=== PATIENT | female | born 1980 | race Caucasian/White ===

== ENCOUNTER 2018-03-10 18:29 | Emergency (ER) | payer BC ==
[2018-03-10 19:14] VITALS: BP 141/94; PULSE 88; TEMP 98.1; BMI 26.5
--- NOTE | 2018-03-10 19:14 | PDOC ---
Rapid Medical Evaluation Time Seen by Provider: 03/10/18 19:09 Medical Evaluation: Allergies Allergy/AdvReac Type Severity Reaction Status Date / Time No Known Allergies Allergy Verified 03/10/18 19:09 03/10/18 19:09 Tripped down the steps at home. Fell down about four steps. Hit face on stairs as well with rug. Reports passing out. Unsure how long she passed out for. Reports bleeding nose. Exam: black eye to L eye. r ankle pain, pain movement Orders: R ankle x-ray, head CT , urine preg Pt to proceed to Ed for further eval
[2018-03-10] MEDS ORDERED: IBUPROFEN 600 MG TABLET (FP) PO ONE (20:31)
--- NOTE | 2018-03-10 21:39 | PDOC ---
History of Present Illness - General History Source: Patient Exam Limitations: No Limitations - History of Present Illness Initial Comments: 03/10/18 21:45 The patient is a 37 year old female with no significant past medical history who presents to the ED s/p mechanical fall up the stairs in her house. She states that she was walking to get a glass of water when her legs gave out on the stairs and she fell forward, hitting her face. Soon after she developed bruising and pain to her right ankle and the pain has become significantly worse to the point where she cannot bear weight. She denies any LOC, shortness of breath, palpitations, headache, or focal neurological deficits before falling. She denies any fevers or chills. Allergies: NKDA PCP: Dr. Tsai <Nina Hester - Last Filed: 03/10/18 21:54> <Lisbet Kohli - Last Filed: 03/11/18 02:19> <Hailey Sarmiento - Last Filed: 03/11/18 03:42> - General Chief Complaint: Injury Stated Complaint: FALL , + LOC , ANKLE INJURY Time Seen by Provider: 03/10/18 19:09 Past History <Nina Hester - Last Filed: 03/10/18 21:54> <Lisbet Kohli - Last Filed: 03/11/18 02:19> - Past Medical History COPD: No - Suicide/Smoking/Psychosocial Hx Smoking History: Never smoked Have you smoked in the past 12 months: Yes Number of Cigarettes Smoked Daily: 3 Information on smoking cessation initiated: Yes 'Breaking Loose' booklet given: 03/10/18 Hx Alcohol Use: No Drug/Substance Use Hx: No Substance Use Type: None <Hailey Sarmiento - Last Filed: 03/11/18 03:42> - Past Medical History Allergies/Adverse Reactions: Allergies Allergy/AdvReac Type Severity Reaction Status Date / Time No Known Allergies Allergy Verified 03/10/18 19:09 Home Medications: Ambulatory Orders Ibuprofen [Motrin -] 600 mg PO TID PRN #21 tablet 03/11/18 Oxycodone HCl/Acetaminophen [Percocet 5-325 mg Tablet] 1 tab PO Q6H PRN #12 tablet MDD 4 03/11/18 Review of Systems - Review of Systems Able to Perform ROS?: Yes Comments:: 03/10/18 21:46 CONSTITUTIONAL: Absent: fever, chills, diaphoresis, generalized weakness, malaise, loss of appetite HEENT: Absent: rhinorrhea, nasal congestion, throat pain, throat swelling, difficulty swallowing, mouth swelling, ear pain, eye pain, visual Changes CARDIOVASCULAR: Absent: chest pain, syncope, palpitations, irregular heart rate, lightheadedness , peripheral edema RESPIRATORY: Absent: cough, shortness of breath, dyspnea with exertion, orthopnea, wheezing, stridor, hemoptysis GASTROINTESTINAL: Absent: abdominal pain, abdominal distension, nausea, vomiting, diarrhea, constipation, melena, hematochezia GENITOURINARY: Absent: dysuria, frequency, urgency, hesitancy, hematuria, flank pain, genital pain MUSCULOSKELETAL: (+) right ankle pain and swelling SKIN: Absent: rash, itching, pallor HEMATOLOGIC/IMMUNOLOGIC: Absent: easy bleeding, easy bruising, lymphadenopathy, frequent infections ENDOCRINE: Absent: unexplained weight gain, unexplained weight loss, heat intolerance, cold intolerance NEUROLOGIC: Absent: headache, focal weakness or paresthesias, dizziness, unsteady gait, seizure, mental status changes, bladder or bowel incontinence PSYCHIATRIC: Absent: anxiety, depression, suicidal or homicidal ideation, hallucinations. All Other Systems: Reviewed and Negative <Nina Hester - Last Filed: 03/10/18 21:54> *Physical Exam - Vital Signs Last Vital Signs Temp Pulse Resp BP Pulse Ox 98.1 F 88 18 141/94 100 03/10/18 19:10 03/10/18 19:10 03/10/18 19:10 03/10/18 19:10 03/10/18 19:10 - Physical Exam Comments: 03/10/18 21:49 GENERAL: Well developed, well nourished. Awake and alert. No acute distress. HEENT: Normocephalic, atraumatic. PERRLA, EOMI. No conjunctival pallor. Sclera are non- icteric. Moist mucous membranes. Oropharynx is clear. NECK: Supple. Full ROM. No JVD. Carotid pulses 2+ and symmetric, without bruits. No thyromegaly. No lymphadenopathy. CARDIOVASCULAR: Regular rate and rhythm. No murmurs, rubs, or gallops. Distal pulses are 2+ and symmetric. PULMONARY: No evidence of respiratory distress. Lungs clear to auscultation bilaterally. No wheezing, rales or rhonchi. ABDOMINAL: Soft. Non-tender. Non-distended. No rebound or guarding. No organomegaly. Normoactive bowel sounds. MUSCULOSKELETAL Swollen, tender, deformed, ecchymotic right ankle, DP pulses in tact. No CVA tenderness. EXTREMITIES: No cyanosis. No clubbing. No edema. No calf tenderness. SKIN: Warm and dry. Normal capillary refill. No rashes. No jaundice. NEUROLOGICAL: Alert, awake, appropriate. Cranial nerves 2-12 intact. No deficits to light touch and temperature in ower extremities. No motor deficits in the in face, upper extremities and lower extremities. Normoreflexic in the upper and lower extremities. Normal speech. PSYCHIATRIC: Cooperative. Good eye contact. Appropriate mood and affect. <Nina Hester - Last Filed: 03/10/18 21:54> - Vital Signs Last Vital Signs Temp Pulse Resp BP Pulse Ox 98.1 F 88 18 141/94 100 03/10/18 19:10 03/10/18 19:10 03/10/18 19:10 03/10/18 19:10 03/10/18 19:10 <Lisbet Kohil - Last Filed: 03/11/18 02:19> - Vital Signs Last Vital Signs Temp Pulse Resp BP Pulse Ox 98.1 F 88 18 141/94 100 03/10/18 19:10 03/10/18 19:10 03/10/18 19:10 03/10/18 19:10 03/10/18 19:10 <Hailey Sarmiento - Last Filed: 03/11/18 03:42> Procedures - Splinting Splint Location: Right: Ankle Pre-Proc Neuro Vasc Exam: normal Hand-Made Type: orthoglass Splint Type: Yes: Sugar Graeme Posterior Post-Proc Neuro Vasc Exam: normal Ujlio Bandage: yes Sling: No Complications: No Post splint xray: No Good repositioning: Yes <Hailey Sarmiento - Last Filed: 03/11/18 03:42> ED Treatment Course - Medications Given in the ED: ED Medications Discontinued Medications Generic Name Dose Route Start Last Admin Trade Name Freq PRN Reason Stop Dose Admin Ibuprofen 600 mg 03/10/18 20:31 03/10/18 20:32 Motrin - PO 03/10/18 20:32 600 mg ONCE ONE Administration <Nina Hester - Last Filed: 03/10/18 21:54> - ADDITIONAL ORDERS Additional order review: Laboratory Results 03/10/18 22:30 Urine HCG, Qual Negative - Medications Given in the ED: ED Medications Discontinued Medications Generic Name Dose Route Start Last Admin Trade Name Freq PRN Reason Stop Dose Admin Ibuprofen 600 mg 03/10/18 20:31 03/10/18 20:32 Motrin - PO 03/10/18 20:32 600 mg ONCE ONE Administration Morphine Sulfate 4 mg 03/10/18 22:47 03/10/18 23:00 Morphine Injection - IVPUSH 03/10/18 22:48 4 mg ONCE ONE Administration Morphine Sulfate 2 mg 03/11/18 02:01 03/11/18 02:02 Morphine Injection - IVPUSH 03/11/18 02:02 2 mg NOW ONE Administration - Additional Consults Time Called: 02:19 (Awaiting callback for ortho consult) Consult/PCP: Dr. Melton <Lisbet Kohli - Last Filed: 03/11/18 02:19> - Medications Given in the ED: ED Medications Discontinued Medications Generic Name Dose Route Start Last Admin Trade Name Freq PRN Reason Stop Dose Admin Ibuprofen 600 mg 03/10/18 20:31 03/10/18 20:32 Motrin - PO 03/10/18 20:32 600 mg ONCE ONE Administration <Hailey Sarmiento - Last Filed: 03/11/18 03:42> *DC/Admit/Observation/Transfer - Attestations Scribe Attestion: 03/10/18 21:51 Documentation prepared by Nina Hester, acting as medical detail representative for Hailey Sarmiento MD. <Nina Hester - Last Filed: 03/10/18 21:54> <Lisbet Kohli - Last Filed: 03/11/18 02:19> <Hailey Sarmiento - Last Filed: 03/11/18 03:42> Diagnosis at time of Disposition: Ankle fracture, right Qualifiers: Encounter type: initial encounter Fracture type: closed Qualified Code(s): S82.891A - Other fracture of right lower leg, initial encounter for closed fracture Bruise of face Qualifiers: Encounter type: initial encounter Qualified Code(s): S00.83XA - Contusion of other part of head, initial encounter - Discharge Dispostion Disposition: HOME Condition at time of disposition: Stable - Prescriptions Prescriptions: Ibuprofen [Motrin -] 600 mg PO TID PRN #21 tablet PRN Reason: Pain Level 6-10 Oxycodone HCl/Acetaminophen [Percocet 5-325 mg Tablet] 1 tab PO Q6H PRN #12 tablet MDD 4 PRN Reason: Severe Pain - Referrals Referrals: Romel Tsai MD [Primary Care Provider] - Iliana Melton MD [Staff Physician] - - Patient Instructions Printed Discharge Instructions: DI for Ankle Fracture Additional Instructions: PLEASE GO TO DR ILIANA MELTON'S OFFICE THIS WEEK CALL TO SEE WHAT TIME TODAY OR TOMORROW YOU SHOULD ARRIVE AT HIS OFFICE PAIN MEDS SENT TO YOUR PHARMACY KEEP YOUR LEG ELEVATED ALL NIGHT TO PREVENT INCREASED SWELLING AND PAIN - Post Discharge Activity
[2018-03-10] MEDS ORDERED: morphine CARPU-JECT 4 MG/1 ML DISP.SYRIN IVPUSH ONE (22:47)
[2018-03-10] MEDS ORDERED: morphine SULFATE 4 MG/ML VIAL ONE (22:50)
[2018-03-11] MEDS ORDERED: morphine CARPU-JECT 2 MG/1 ML DISP.SYRIN IVPUSH ONE (02:01)
[2018-03-11] MEDS ORDERED: morphine CARPU-JECT 2 MG/1 ML DISP.SYRIN ONE (02:03)
[2018-03-11] MEDS ORDERED: IBUPROFEN 600 MG TABLET (FP) PO ONE (03:48)
[2018-03-11] MEDS ORDERED: IBUPROFEN 400 MG TABLET (FP) PO ONE (03:52)
== END 2018-03-11 03:48 | disposition home or self-care (01) ==
LOC: JER 18:29
PROC: 2W3QX1Z Immobilization of Right Lower Leg using Splint (ICD-10-PCS; principal; 2018-03-10)
DX: S82.891A Other fracture of right lower leg, initial encounter for closed fracture (principal); S00.83XA Contusion of other part of head, initial encounter; W10.8XXA Fall (on) (from) other stairs and steps, initial encounter; Y93.89 Activity, other specified; Y92.018 Other place in single-family (private) house as the place of occurrence of the external cause; Y99.8 Other external cause status
CPT/HCPCS: 70450-TC; 73590-TC-RT-FY; 73610-TC-RT-FY; 73630-TC-RT-FY; 84703; 99281-25

== ENCOUNTER 2022-11-27 16:05 | Day surgery (SDC) | payer BC, OTHER ==
[2022-11-27] MEDS ORDERED: IRON SUCROSE INJECTION 200 MG in SODIUM CHLORIDE 100 ML IVPB ONE (17:30)
[2022-11-27 18:10] VITALS: BP 122/61; PULSE 87; RESP 17; TEMP 97.9
== END 2022-11-27 18:10 | disposition home or self-care (01) ==
LOC: FINFUSION 16:05 → FM/S 16:06 → FINFUSION 18:10
PROVIDERS: ATTEND Family Medicine
PROC: 3E033GC Introduction of Other Therapeutic Substance into Peripheral Vein, Percutaneous Approach (ICD-10-PCS; principal; 2022-11-27)
DX: D50.9 Iron deficiency anemia, unspecified (principal)
CPT/HCPCS: 96365; J1756

== ENCOUNTER 2022-12-04 13:57 | Day surgery (SDC) | payer BC, OTHER ==
[~2022-12-04 13:57] MED LIST: HYDROCORTISONE SOD SUCCINATE 100 MG/2 ML VIAL IVPB PRN
[2022-12-04] MEDS ORDERED: IRON SUCROSE INJECTION 200 MG in SODIUM CHLORIDE 100 ML IVPB ONE (14:00)
[2022-12-04] MEDS ORDERED: diphenhydrAMINE HCL 50 MG CAPSULE PO PRN (14:00)
[2022-12-04 15:22] VITALS: BP 128/70; PULSE 78; RESP 16; TEMP 98.1
== END 2022-12-04 15:45 | disposition home or self-care (01) ==
LOC: FINFUSION 13:57 → FM/S 13:58 → FINFUSION 15:45
PROVIDERS: ATTEND Family Medicine
PROC: 3E033GC Introduction of Other Therapeutic Substance into Peripheral Vein, Percutaneous Approach (ICD-10-PCS; principal; 2022-12-04)
DX: D50.9 Iron deficiency anemia, unspecified (principal)
CPT/HCPCS: 96365; J1756

== ENCOUNTER 2022-12-13 13:46 | Day surgery (SDC) | payer BC, OTHER ==
[~2022-12-13 13:46] MED LIST changes: -HYDROCORTISONE SOD SUCCINATE 100 MG/2 ML VIAL IVPB PRN; +IRON SUCROSE INJECTION 200 MG in SODIUM CHLORIDE 100 ML IVPB ONE
[2022-12-13] MEDS ORDERED: IRON SUCROSE INJECTION 200 MG in SODIUM CHLORIDE 100 ML IVPB ONE (14:15)
[2022-12-13 15:49] VITALS: BP 110/66; PULSE 90; RESP 18; TEMP 98.3
== END 2022-12-13 15:49 | disposition home or self-care (01) ==
LOC: FINFUSION 13:46 → FM/S 13:46 → FINFUSION 15:49
PROVIDERS: ATTEND Family Medicine
PROC: 3E033GC Introduction of Other Therapeutic Substance into Peripheral Vein, Percutaneous Approach (ICD-10-PCS; principal; 2022-12-13)
DX: D50.9 Iron deficiency anemia, unspecified (principal)
CPT/HCPCS: 96365; J1756